=== PATIENT | male | born 1955 | race Native Hawaiian/Other Pacific Islander ===

== ENCOUNTER 2017-07-01 16:27 | Emergency (ER) | payer OTHER ==
[~2017-07-01] VITALS: Ht 182.9 cm; Wt 73.5 kg
[~2017-07-01 16:27] MED LIST: ALPR0.5T24 PO; AMOXICILLIN ER775 MG PO; CARV12.5 PO; CELEXA20 MG PO; HYDR-3182 PO; HYDR10TA PO; LEVE500T5 PO; MEDROL DOSEPAK4 MG OR; PROTONIX20 MG PO; RANITIDINE 150150 MG PO; ZONEGRAN100 MG OR
[2017-07-01 17:29] LABS: PLATELET COUNT 373 K/uL (142-355)
[2017-07-01 20:35] VITALS: BP 120/68; TEMP 98.4
== END 2017-07-01 20:36 | disposition home or self-care (01) ==
LOC: ED 16:27
PROVIDERS: Specialist
DX: R41.82 Altered mental status, unspecified (principal); Z79.899 Other long term (current) drug therapy; Z51.81 Encounter for therapeutic drug level monitoring
CPT/HCPCS: 80053; 80061; 80307; 80320; 80329; 81000; 82607; 82746; 83036; 83735; 84100; 84134; 84439; 84443; 85027; 85610; 93005; 99285

== ENCOUNTER 2017-07-20 14:12 | Outpatient (CLI) | payer OTHER ==
[2017-07-20 14:48] LABS: POTASSIUM 3.7 mmol/L (3.6-5.2)
[2017-07-20 14:54] LABS: PLATELET COUNT 262 K/uL (142-355)
== END 2017-07-20 22:05 | disposition home or self-care (01) ==
LOC: LABW 14:12
PROVIDERS: Internal Medicine Cardiovascular Disease
DX: I50.9 Heart failure, unspecified (principal); Z79.899 Other long term (current) drug therapy; Z51.81 Encounter for therapeutic drug level monitoring
CPT/HCPCS: 36415; 80048; 83880; 85027

== ENCOUNTER 2017-12-08 16:03 | Outpatient (CLI) | payer OTHER ==
[2017-12-08 16:12] LABS: PLATELET COUNT 277 K/uL (142-355)
[2017-12-08 16:18] LABS: POTASSIUM 4.4 mmol/L (3.6-5.2)
== END 2017-12-08 20:38 | disposition home or self-care (01) ==
LOC: LAB 16:03
PROVIDERS: Internal Medicine
DX: I25.5 Ischemic cardiomyopathy (principal); G40.909 Epilepsy, unspecified, not intractable, without status epilepticus; K21.9 Gastro-esophageal reflux disease without esophagitis; F02.81 Dementia in other diseases classified elsewhere, unspecified severity, with behavioral disturbance; I25.10 Atherosclerotic heart disease of native coronary artery without angina pectoris; Z79.899 Other long term (current) drug therapy
CPT/HCPCS: 80053; 80061; 83036; 84443; 85027